=== PATIENT | female | born 1990 | race American Indian/Alaskan Native ===

== ENCOUNTER 2018-12-02 08:53 | Emergency (ER) | payer MEDICAID ==
--- NOTE | 2018-12-02 09:54 | Emergency Department Report ---
ED Female HPI - General Chief complaint: Recheck/Abnormal Lab/Rx Stated complaint: REPEAT LAB Time Seen by Provider: 12/02/18 09:42 Source: patient, EMS, old records reviewed Mode of arrival: Ambulatory Limitations: No Limitations - History of Present Illness Initial comments: I had the pleasure of taking care of Ms. Blanchard 2 days ago. She was diagnosed with missed complete miscarriage 2 days ago. However with significantly elevated hCG, I have asked her to return for hCG level. She's had intermittent mild left flank pain. No pain currently. She has had vaginal spotting since eating counter 2 days ago. This is her fourth . She has 3 healthy children. All vaginal deliveries. No previous history of or miscarria ge. She has been followed by senior sharepoint architect Dr. Phu [facility] . According to last menstrual period 10/07/2018, her estimated gestational age is 8 weeks 0 days. Blood type O+ MD Complaint: vaginal bleeding -: Gradual Severity: mild Consistency: intermittent Improves with: none Worsens with: none Are you Now?: Yes Associated Symptoms: vaginal bleeding, other (left flank pain) - Related Data Allergies Allergy/AdvReac Type Severity Reaction Status Date / Time SEAFOOD Allergy Hives Uncoded 12/02/18 09:12 ED Review of Systems ROS: Stated complaint: REPEAT LAB Other details as noted in HPI Comment: All other systems reviewed and negative Constitutional: denies: fever, malaise Respiratory: denies: cough Cardiovascular: denies: chest pain ED Past Medical Hx - Past Medical History Previous Medical History?: No - Surgical History Past Surgical History?: No - Social History Smoking Status: Never Smoker Substance Use Type: None ED Physical Exam - General Limitations: No Limitations General appearance: alert, in no apparent distress - Head Head exam: Present: atraumatic, normocephalic - Eye Eye exam: Present: normal appearance - ENT ENT exam: Present: mucous membranes moist - Neck Neck exam: Present: normal inspection, full ROM. Absent: tenderness, meningismus - Respiratory Respiratory exam: Present: normal lung sounds bilaterally. Absent: respiratory distress, wheezes, rales, rhonchi - Cardiovascular Cardiovascular Exam: Present: regular rate, normal rhythm, normal heart sounds. Absent: systolic murmur, diastolic murmur, rubs, gallop - GI/Abdominal GI/Abdominal exam: Present: soft, normal bowel sounds. Absent: distended, tenderness, guarding, rebound - Extremities Exam Extremities exam: Present: normal inspection - Back Exam Back exam: Present: normal inspection - Neurological Exam Neurological exam: Present: alert, oriented X3 - Psychiatric Psychiatric exam: Present: normal affect, normal mood - Skin Skin exam: Present: warm, dry, intact, normal color. Absent: rash ED Course Vital Signs 12/02/18 09:13 Temperature 98.5 F Pulse Rate 69 Respiratory 18 Rate Blood Pressure 125/99 O2 Sat by Pulse 97 Oximetry ED Medical Decision Making - Lab Data Result diagrams: 12/02/18 10:29 12/02/18 10:29 - Medical Decision Making Ms. Blanchard presents with vaginal bleeding and intermittent left flank pain. I initially suspected complete miscarriage. Previous hCG level 1601 on 2 days ago. Today hCG level is 2050. With previous US findings, I am concerned for ectopic . Dr. Calvo MARKETING SUPPORT MANAGER on-call agrees with my suspicion of ectopic . Dr. Calvo evaluated Ms. Blanchard in the ED. He recommended methotrexate. She consented to methotrexate. I ordered the methotrexate dose which was given in the ED. I also spoke directly radiologist who had concern for ectopic . On ultrasound 1.3 cm cystic mass was found to be adjacent to the ovary. The mass appeared to be hypervascular. The location of the abnormality appears to correspond with patient's left flank pain. Mrs. Blanchard is discharged home after methotrexate therapy given in the ED. She has understands to follow-up in 72 hours for repeat hCG level at [facility]. Critical Care Time: Yes (40) Critical care attestation.: If time is entered above; I have spent that time in minutes in the direct care of this critically ill patient, excluding procedure time. 40 minutes of critical care time excluding procedures were used in the care of the patient. Patient required multiple assessments and interventions. I reviewed the electronic medical record. I spoke with consultants involved in the care of the patient including Dr. Calvo senior sharepoint architect and radiologist. ED Disposition Clinical Impression: Ectopic Disposition: DC-01 TO HOME OR SELFCARE Is pt being admited?: Yes Condition: Stable Instructions: Methotrexate (By mouth), Ectopic (ED) Referrals: SONG OLMOS MD [Referring] - 2-3 Days JOSELIN CALVO MD [Staff Physician] - 2-3 Days
[2018-12-02 10:43] LABS: Basophils % (Auto) 0.3 % (0.0-1.8); Eosinophils % (Auto) 0.7 % (0.0-4.3); Hematocrit 40.8 % (30.3-42.9); Hemoglobin 13.5 gm/dl (10.1-14.3); Lymphocytes # (Auto) 2.6 K/mm3 (1.2-5.4); Lymphocytes % (Auto) 44.9 % (13.4-35.0); Mean Corpuscular HGB Conc 33 % (30-34); Mean Corpuscular Volume 92 fl (79-97); Monocytes # (Auto) 0.4 K/mm3 (0.0-0.8); Monocytes % (Auto) 7.3 % (0.0-7.3); Platelet Count 384 K/mm3 (140-440); Red Blood Count 4.42 M/mm3 (3.65-5.03); Red Cell Distribution Width 13.5 % (13.2-15.2)
[2018-12-02 10:56] LABS: BUN/Creatinine Ratio 16; Blood Urea Nitrogen 11 mg/dL (7-17); Calcium 9.3 mg/dL (8.4-10.2); Hemolysis Index 3
[2018-12-02 10:59] LABS: INR 1.04 (0.87-1.13); Partial Thromboplastin Time 29.5 Sec. (24.2-36.6)
--- NOTE | 2018-12-02 15:38 | Ultrasound Report ---
FINAL REPORT PROCEDURE: US OB TRANSVAGINAL and transabdominal TECHNIQUE: Real-time transvaginal and transabdominal sonography of the uterus, placenta, amniotic fl uid, adnexa, and fetus was performed with image documentation. Measurements were obtained to determin e age/size. M-mode Doppler was used to document heartbeat. CPT 76631 HISTORY: possible ectopic left flank pain COMPARISON: No prior studies are available for comparison. FINDINGS: Uterus measures 8.5 x 4.3 x 6.9 centimeters. The endometrium is thin, measuring 2.6 millimeters in th ickness. No endometrial fluid or intrauterine gestational sac is seen. Right Ovary: 2.6 x 1.9 x 2.5 centimeters. No focal lesions Left Ovary: 2.4 x 2.0 x 2.1 centimeters. There is a rounded mass with central lucency and peripheral vascularity either within or abutting the left ovary, which measures 1.3 x 1.2 x 1.2 centimeters. Thi s could be a complex left ovarian cyst. Cannot fully exclude ectopic . No free fluid is seen . IMPRESSION: No intrauterine gestational sac is seen. There is a rounded mass with central lucency and peripheral vascularity either within or abutting the left ovary, which measures 1.3 x 1.2 x 1.2 centimeters. Thi s could be a complex left ovarian cyst, however cannot exclude ectopic . Recommend clinical and sonographic follow-up. Findings were discussed with Dr. Flynn by telephone at 2:35 p.m. james standard time on 12/02/2018
--- NOTE | 2018-12-02 15:39 | Ultrasound Report ---
FINAL REPORT PROCEDURE: US OB TRANSVAGINAL and transabdominal TECHNIQUE: Real-time transvaginal and transabdominal sonography of the uterus, placenta, amniotic fl uid, adnexa, and fetus was performed with image documentation. Measurements were obtained to determin e age/size. M-mode Doppler was used to document heartbeat. CPT 89386 HISTORY: possible ectopic left flank pain COMPARISON: No prior studies are available for comparison. FINDINGS: Uterus measures 8.5 x 4.3 x 6.9 centimeters. The endometrium is thin, measuring 2.6 millimeters in th ickness. No endometrial fluid or intrauterine gestational sac is seen. Right Ovary: 2.6 x 1.9 x 2.5 centimeters. No focal lesions Left Ovary: 2.4 x 2.0 x 2.1 centimeters. There is a rounded mass with central lucency and peripheral vascularity either within or abutting the left ovary, which measures 1.3 x 1.2 x 1.2 centimeters. Thi s could be a complex left ovarian cyst. Cannot fully exclude ectopic . No free fluid is seen . IMPRESSION: No intrauterine gestational sac is seen. There is a rounded mass with central lucency and peripheral vascularity either within or abutting the left ovary, which measures 1.3 x 1.2 x 1.2 centimeters. Thi s could be a complex left ovarian cyst, however cannot exclude ectopic . Recommend clinical and sonographic follow-up. Findings were discussed with Dr. Flynn by telephone at 2:35 p.m. central standard time on 12/02/2018
[2018-12-02 18:03] VITALS: BP 131/79
== END 2018-12-02 18:01 | disposition home or self-care (01) ==
LOC: ED 08:53
DX: O00.90 Unspecified ectopic pregnancy without intrauterine pregnancy (principal); Z3A.01 Less than 8 weeks gestation of pregnancy; Z91.013 Allergy to seafood
CPT/HCPCS: 36415; 76801; 76817; 80048; 84702; 85025; 85610; 85730; 96372; 99291; J9260

== ENCOUNTER 2018-12-11 18:06 | Emergency (ER) | payer MEDICAID ==
[2018-12-11 20:07] LABS: Bilirubin,Urine NEG (Negative); Blood,Urine NEG (Negative); Color,Urine Yellow (Yellow); Protein,Urine <15 mg/dL mg/dL (Negative); Urobilinogen,Urine < 2.0 mg/dL (<2.0)
[2018-12-11 20:36] LABS: Hematocrit 39.6 % (30.3-42.9); Hemoglobin 13.3 gm/dl (10.1-14.3); Mean Corpuscular HGB Conc 34 % (30-34); Mean Corpuscular Volume 91 fl (79-97); Platelet Count 445 K/mm3 (140-440); Red Blood Count 4.33 M/mm3 (3.65-5.03); Red Cell Distribution Width 13.4 % (13.2-15.2)
--- NOTE | 2018-12-12 01:16 | Emergency Department Report ---
ED Abdominal Pain HPI - General Chief Complaint: Urogenital-Female Stated Complaint: FOLLOW UP FROM MISCARRIAGE Time Seen by Provider: 12/12/18 00:52 Source: patient Mode of arrival: Ambulatory Limitations: No Limitations - History of Present Illness Initial Comments: Patient is a 28-year-old female A1 presents for further by [facility] for follow- up ultrasound to rule out ectopic patient states miscarriage on 11/10/2018 presents for follow-up ultrasound after increase in hCG this patient states subjectively that she was given methotrexate 2 weeks ago after initial six-day bleeding has not had bleeding no abdominal pain or cramping no nausea vomiting no fever or chills however SPECIAL DELIVERY CARRIER was concerned and increase in hCG level will obtain US and hcg serum. MD Complaint: other (abnormal hcg ) Onset/Timin -: month(s) Severity: moderate Severity scale (0 -10): 7 Quality: cramping Consistency: intermittent Improves With: nothing Worsens With: movement Associated Symptoms: denies: nausea, vomiting, diarrhea, fever, chills, constipation, dysuria, hematemesis, hematochezia, melena, hematuria, anorexia, syncope - Related Data LMP Date: 10/21/18 Previous Rx's Medication Instructions Recorded Last Taken Type traMADol [Ultram] 50 mg PO Q6HR PRN #12 tablet 12/12/18 Unknown Rx Allergies Allergy/AdvReac Type Severity Reaction Status Date / Time SEAFOOD Allergy Hives Uncoded 12/02/18 09:12 ED Review of Systems ROS: Stated complaint: FOLLOW UP FROM MISCARRIAGE Other details as noted in HPI Constitutional: denies: chills, fever Eyes: denies: eye pain, eye discharge, vision change ENT: denies: ear pain, throat pain Respiratory: denies: cough, shortness of breath, wheezing Cardiovascular: denies: chest pain, palpitations Endocrine: no symptoms reported Gastrointestinal: denies: abdominal pain, nausea, vomiting, diarrhea Genitourinary: denies: urgency, dysuria, frequency, hematuria, discharge Musculoskeletal: denies: back pain, joint swelling, arthralgia Skin: denies: rash, lesions Neurological: denies: headache, weakness, paresthesias Psychiatric: denies: anxiety, depression Hematological/Lymphatic: denies: easy bleeding, easy bruising ED Past Medical Hx - Past Medical History Previous Medical History?: No - Surgical History Past Surgical History?: No - Social History Smoking Status: Never Smoker Substance Use Type: None - Medications Home Medications: Home Medications Medication Instructions Recorded Confirmed Last Taken Type traMADol [Ultram] 50 mg PO Q6HR PRN #12 tablet 12/12/18 Unknown Rx ED Physical Exam - General Limitations: No Limitations General appearance: alert, in no apparent distress - Head Head exam: Present: atraumatic, normocephalic - Eye Eye exam: Present: normal appearance - ENT ENT exam: Present: mucous membranes moist - Neck Neck exam: Present: normal inspection - Respiratory Respiratory exam: Present: normal lung sounds bilaterally. Absent: respiratory distress, wheezes, stridor, chest wall tenderness - Cardiovascular Cardiovascular Exam: Present: regular rate, normal rhythm. Absent: systolic murmur, diastolic murmur, rubs, gallop - GI/Abdominal GI/Abdominal exam: Present: soft, normal bowel sounds. Absent: distended, tenderness, guarding, rebound, rigid, bruit, hernia - Rectal Rectal exam: Present: deferred - External exam: Present: other (exam deferred by patient) - Extremities Exam Extremities exam: Present: normal inspection, full ROM. Absent: tenderness - Back Exam Back exam: Present: normal inspection, full ROM. Absent: tenderness, CVA tenderness (R), CVA tenderness (L) - Neurological Exam Neurological exam: Present: alert, oriented X3, CN II-XII intact, normal gait - Psychiatric Psychiatric exam: Present: normal affect, normal mood - Skin Skin exam: Present: warm, dry, intact, normal color. Absent: rash ED Course Vital Signs 12/11/18 18:14 Temperature 97.7 F Pulse Rate 83 Respiratory 18 Rate Blood Pressure 129/81 O2 Sat by Pulse 100 Oximetry ED Medical Decision Making - Lab Data Result diagrams: 12/11/18 20:10 Labs 12/11/18 12/11/18 12/11/18 18:17 19:35 20:10 WBC 6.7 RBC 4.33 Hgb 13.3 Hct 39.6 MCV 91 MCH 31 MCHC 34 RDW 13.4 Plt Count 445 H HCG, Quant 2594 H Urine Color Yellow Urine Turbidity Clear Urine pH 6.0 Ur Specific [place] 1.010 Urine Protein <15 mg/dl Urine Glucose (UA) Neg Urine Ketones Neg Urine Blood Neg Urine Nitrite Neg Urine Bilirubin Neg Urine Urobilinogen < 2.0 Ur Leukocyte Esterase Tr Urine WBC (Auto) 1.0 Urine RBC (Auto) 2.0 U Epithel Cells (Auto) 2.0 - Radiology Data Radiology results: report reviewed, image reviewed interpreted by me: FINAL REPORT EXAM: US OB lt; = 14 WEEKS FETUS HISTORY: abd pain COMPARISON: December 02, 2018. TECHNIQUE: Several real-time grayscale and color Doppler images were obtained. Transabdominal and transvaginal exam. FINDINGS: Uterus measures 9.0 x 4.4 x 5.7 centimeters. No IUP demonstrated. Right ovary measures 2.9 x 1.7 x 2.9 centimeters. Left ovary measures 2.8 x 1.9 x 1.7 centimeters. There is vascular flow to the ovaries. In the left adnexal region there is a 2.2 x 2.1 x 2.3 centimeter soft tissue structure with some vascularity. On prior exam similar structure seen measuring 1.3 centimeters. There is remains concerning for ectopic . Echogenic small bowel loop segment less likely. No free fluid. IMPRESSION: Findings concerning for left ectopic similar prior study. Soft tissue structure left adnexal region measuring 2.2 centimeters in greatest dimension, previously 1.3 centimeters. No free fluid to suggest rupture at this time. No IUP demonstrated. Right ovary unremarkable. Transcribed By: LMA Dictated By: AMPARO LAWS MD Electronically Authenticated By: AMPARO LAWS MD Signed Date/Time: 12/12/18141 DD/ 0 TD/TT: 12/12/18140 - Medical Decision Making HC, US: radiologist called to confirm: 2.2 cm left ectopic , recommend OBGYN consult for ectopic , consult Dr. Lazo [facility] rec ommendation Methotrexate 50mg/M2 IM x 1 and follow up with [facility] tomorrow , consulted ED attending concurs with same, methotrexate ordered will monitor and dc to home after monitoring period, pt will follow up with [facility] tomorrow, pt will return to emergency if symptoms worsen, pt verbalized agreement and understanding with discharge plan. Critical care attestation.: If time is entered above; I have spent that time in minutes in the direct care of this critically ill patient, excluding procedure time. ED Disposition Clinical Impression: Ectopic Qualifiers: Location of ectopic : tubal Intrauterine status: without intrauterine Laterality: left Qualified Code(s): O00.102 - Left tubal without intrauterine Disposition: DC-01 TO HOME OR SELFCARE Is pt being admited?: No Does the pt Need Aspirin: No Condition: Stable Instructions: Ectopic (ED) Prescriptions: traMADol [Ultram] 50 mg PO Q6HR PRN #12 tablet PRN Reason: Pain Referrals: [facility] [Provider Group] - 24 Hours Forms: Methotrexate D/C Instructions, Work/School Release Form(ED) Time of Disposition: 03:26
--- NOTE | 2018-12-12 01:42 | Ultrasound Report ---
FINAL REPORT EXAM: US OB <= 14 WEEKS FETUS HISTORY: abd pain COMPARISON: December 02, 2018. TECHNIQUE: Several real-time grayscale and color Doppler images were obtained. Transabdominal and tr ansvaginal exam. FINDINGS: Uterus measures 9.0 x 4.4 x 5.7 centimeters. No IUP demonstrated. Right ovary measures 2.9 x 1.7 x 2.9 centimeters. Left ovary measures 2.8 x 1.9 x 1.7 centimeters. Th ere is vascular flow to the ovaries. In the left adnexal region there is a 2.2 x 2.1 x 2.3 centimeter soft tissue structure with some vascularity. On prior exam similar structure seen measuring 1.3 cent imeters. There is remains concerning for ectopic . Echogenic small bowel loop segment less l ikely. No free fluid. IMPRESSION: Findings concerning for left ectopic similar prior study. Soft tissue structure left adnexa l region measuring 2.2 centimeters in greatest dimension, previously 1.3 centimeters. No free fluid t o suggest rupture at this time. No IUP demonstrated. Right ovary unremarkable.
[2018-12-12 04:03] VITALS: BP 122/78
== END 2018-12-12 05:32 | disposition home or self-care (01) ==
LOC: ED 18:06
DX: O00.102 Left tubal pregnancy without intrauterine pregnancy (principal); Z3A.00 Weeks of gestation of pregnancy not specified; Z91.013 Allergy to seafood
CPT/HCPCS: 36415; 76801; 76817; 81001; 84702; 85027; 96372; 99284; J9260